=== PATIENT | female | born 1960 | race Caucasian/White ===

== ENCOUNTER → 2017-03-10 | Outpatient (CLI) | payer BC ==
[~2017-03-10] MED LIST: KEFLEX PO
--- NOTE | ~2017-03-10 | MY29 ---
[facility] A Service of [facility] RADIOLOGY TEXT RESULTS PATIENT: RHONDA SALMERON LOCATION: [facility] : 64 UNIT #: [id number] AGE: [address]: Lucy Hernandez MD SEX: F ORDER DR: [id number] [facility] [address] [place], [place] [address] [id number] O MR#: [id number] Acc #: [id number] NAME: RHONDA SALMERON : 1960 SEX: F STUDY DATE/TIME: 03/10/2017 16:26 UNIT: [facility] ROOM: STUDY DESCRIPTION: MY RONNIE SCREENING W/ CAD BILAT Attending Physician: Lucy Hernandez M.D. Referring Physician: Lucy Hernandez M.D. Ordering Physician: Lucy Hernandez M.D. Primary Care Physician: Lucy Hernandez M.D. MEDICAL IMAGING REPORT This report is preliminary unless electronic signature is present EXAM Digital screening mammogram, 03/10/2017 HISTORY 57-year-old woman no risk elevation. Open wound under right breast 6 o'clock years ago. Annual screening. COMPARISON 08/30/2007 FINDINGS Digital imaging of each breast was completed utilizing screening protocol. Review includes FDA-approved CAD device. Breast parenchyma is fatty replaced. Mild subareolar duct prominence is noted right breast. Benign opacity deep central right breast location identified on the old exam is only partially imaged today. There is no evolving mass. I see no suspicious microcalcifications and no architectural deformity. IMPRESSION Negative mammogram. Annual screening recommended. Patients over the age of 40 are entered into a reminder system with target due date for the next mammogram. A result letter will also be sent to the patient. BIRADS: 1 Negative Dictated by... Todd Denis M.D. THIS IS AN ELECTRONICALLY VERIFIED REPORT Todd Denis M.D. at 03/13/2017 2:19 PM REBEL/marcio [facility] A Service of [facility] RADIOLOGY TEXT RESULTS PATIENT: RHONDA SALMERON LOCATION: [facility] #: [id number] : 64 UNIT #: [id number] AGE: [address]: Lucy Hernandez MD SEX: F ORDER DR: TD: 03/13/2017 09:14 JOB #: [id number] MEDICAL IMAGING REPORT Page 1 of 1 COPY
== END | disposition home or self-care (01) ==
LOC: CWCC 16:04
DX: Z12.31 Encounter for screening mammogram for malignant neoplasm of breast (principal)
CPT/HCPCS: G0202